=== PATIENT | female | born 1955 | race American Indian/Alaskan Native ===

== ENCOUNTER 2016-08-13 10:11 | Outpatient (CLI) | payer MEDICARE ==
--- NOTE | 2016-08-13 11:50 | Mammography Report ---
LEFT DIGITAL DIAGNOSTIC MAMMOGRAM : 08/13/16 10:11:00 CLINICAL: Recalled for calcifications. Status post left stereotactic biopsy for calcifications at [facility] in 2010. COMPARISON:07/28/16 screening in 07/05/15. FINDINGS: ML and CC magnification views demonstrate a biopsy clip and adjacent pleomorphic calcifications which have increased slightly in number compared to the 2016 exam. No associated mass or architectural distortion. No layering of calcifications. IMPRESSION: Increased number of probably benign calcifications. BI-RADS CATEGORY: 3 -- Probably Benign RECOMMENDATION: 6 month follow-up magnification views. We will also attempt to obtain comparison mammograms from [facility]. ACR BI-RADS MAMMOGRAPHIC CODES: 0 = Needs additional imaging evaluation; 1 = Negative; 2 = Benign; 3 = Probably benign; 4 = Suspicious; 5 = Malignant; 6 = Known biopsy-proven malignancy COMMENT: 1. Dense breast tissue, i.e., adenosis, fibrocystic changes, etc., may obscure an underlying neoplasm. 2. Approximately 10% of cancers are not detected with mammography. 3. A negative mammography report should not delay biopsy if a clinically suspicious mass is present. COMMENT: Patient follow-up letters are generated by our [employer] application.
== END 2016-08-13 10:12 | disposition home or self-care (01) ==
LOC: MAMMO 10:11
DX: R92.1 Mammographic calcification found on diagnostic imaging of breast (principal); R92.8 Other abnormal and inconclusive findings on diagnostic imaging of breast
CPT/HCPCS: G0206-LT

== ENCOUNTER 2017-10-01 11:22 | Emergency (ER) | payer MEDICARE ==
[2017-10-01 13:01] VITALS: BP 155/64
--- NOTE | 2017-10-01 13:39 | Emergency Department Report ---
Blank Doc - Documentation Documentation: Patient is a 62-year-old female with left tightness and Swelling will get Doppler ultrasound of lower leg and will give patient Tylenol and Motrin.
[2017-10-01 15:51] LABS: Hematocrit 39.8 % (30.3-42.9); Hemoglobin 12.5 gm/dl (10.1-14.3); Mean Corpuscular HGB Conc 31 % (30-34); Mean Corpuscular Hemoglobin 27 pg (28-32); Mean Corpuscular Volume 85 fl (79-97); Platelet Count 266 K/mm3 (140-440); Red Cell Distribution Width 16.5 % (13.2-15.2)
[2017-10-01 16:03] LABS: BUN/Creatinine Ratio 12; Blood Urea Nitrogen 11 mg/dL (7-17); Calcium 9.9 mg/dL (8.4-10.2); Hemolysis Index 8
--- NOTE | 2017-10-01 16:09 | Emergency Department Report ---
ED Lower Extremity HPI - General Chief Complaint: Extremity Problem,Nontraumatic Stated Complaint: LEFT LEG PAIN Time Seen by Provider: 10/01/17 14:01 Source: patient Mode of arrival: Ambulatory Limitations: No Limitations - History of Present Illness Initial Comments: This is a 62 y.o. A.A. female that presents with left lower leg swelling and calf pain. Patient was sent to ER directly from Flora Hansen with [facility], podiatry office today. They wanted to r/o DVT. Patient reports pain to LLE for 2 weeks with swelling. She thought it was associated with diabetes. History of DM2, HTN, & HLD. Patient is managed by Dr. Jennifer Warren at [facility] for chronic conditions. Denies sharp pain, redness, numbness, tingling, deformity, or recent injury. MD Complaint: leg injury -: week(s) (2) Injury: Leg: Left (swelling and pain) Type of Injury: unknown Place: home Severity: moderate Severity scale (0 -10): 7 Improves With: immobilization Worsens With: weight bearing, movement Associated Symptoms: swelling, able to partially bear weight, ambulatory. denies: snap/pop sensation, numbness, tingling, unable to bear weight Treatments Prior to Arrival: NSAIDS - Related Data Previous Rx's Medication Instructions Recorded Last Taken Type Ibuprofen 800 mg PO Q6H PRN #20 tablet 10/01/17 Unknown Rx Sulfamethoxazole/Trimethoprim 1 each PO BID 10 Days #20 tablet 10/01/17 Unknown Rx [Bactrim DS TAB] Allergies Allergy/AdvReac Type Severity Reaction Status Date / Time clonidine Allergy FLOATING Unverified 08/13/16 10:15 latex AdvReac Swelling Unverified 05/16/13 10:56 lisinopril AdvReac Unknown Unverified 05/16/13 10:56 ED Review of Systems ROS: Stated complaint: LEFT LEG PAIN Other details as noted in HPI Constitutional: denies: chills, fever Respiratory: denies: cough, shortness of breath, wheezing Cardiovascular: denies: chest pain, palpitations Gastrointestinal: denies: abdominal pain, nausea, vomiting, diarrhea, constipation Musculoskeletal: arthralgia (LLE pain). denies: back pain Skin: denies: rash, lesions, pruritus Neurological: abnormal gait. denies: headache, weakness, numbness, paresthesias Psychiatric: denies: anxiety, depression ED Past Medical Hx - Past Medical History Previous Medical History?: Yes Hx Hypertension: Yes Hx CVA: Yes (2010) Hx Diabetes: Yes - Surgical History Past Surgical History?: No - Social History Smoking Status: Never Smoker Substance Use Type: Alcohol - Medications Home Medications: Home Medications Medication Instructions Recorded Confirmed Last Taken Type Ibuprofen 800 mg PO Q6H PRN #20 tablet 10/01/17 Unknown Rx Sulfamethoxazole/Trimethoprim 1 each PO BID 10 Days #20 tablet 10/01/17 Unknown Rx [Bactrim DS TAB] ED Physical Exam - General Limitations: No Limitations General appearance: alert, in no apparent distress - Respiratory Respiratory exam: Present: normal lung sounds bilaterally. Absent: respiratory distress, wheezes, rales, rhonchi, stridor, accessory muscle use - Cardiovascular Cardiovascular Exam: Present: regular rate, normal rhythm, normal heart sounds. Absent: systolic murmur, diastolic murmur, rubs, gallop - GI/Abdominal GI/Abdominal exam: Present: soft, normal bowel sounds. Absent: distended, tenderness, guarding, rebound, rigid, organomegaly, mass - Extremities Exam Extremities exam: Present: full ROM, normal capillary refill, pedal edema, calf tenderness (left) - Expanded Lower Extremity Exam Left Hip exam: Present: normal inspection, full ROM Upper Leg exam: Present: normal inspection, full ROM Knee exam: Present: normal inspection, full ROM Lower Leg exam: Present: swelling. Absent: abrasion, laceration, ecchymosis, deformity, crepidus, dislocation Ankle exam: Present: tenderness, swelling. Absent: abrasion, laceration, ecchymosis, deformity, crepidus, dislocation, erythema Foot/Toe exam: Present: full ROM, swelling. Absent: abrasion, laceration, ecchymosis, deformity, crepidus, dislocation, erythema, amputation, puncture wound, foreign body Neuro vascular tendon exam: Present: no vascular compromise Gait: Positive: observed and limited by pain - Neurological Exam Neurological exam: Present: alert, oriented X3, normal gait - Psychiatric Psychiatric exam: Present: normal affect, normal mood - Skin Skin exam: Present: warm, dry, intact, normal color. Absent: rash ED Course Vital Signs 10/01/17 12:57 Temperature 97.7 F Pulse Rate 63 Respiratory 16 Rate Blood Pressure 155/64 O2 Sat by Pulse 97 Oximetry ED Lower Extremity MDM - Lab Data Result diagrams: 10/01/17 15:35 10/01/17 15:35 - Radiology Data Radiology results: report reviewed Doppler left: NO EVIDENCE OF DVT/SVT NOTED IN VESSELS/SEGMENTS EXAMINED - Medical Decision Making 62 y.o. female that presents with LLE pain for 2 weeks. She was sent here directly from podiatry appointment today to r/o DVT. Denies sharp pain, redness , numbness, tingling, deformity, or recent injury. Patient examined by me and in no acute distress. Vitals stable. Obtained BMP, CBC, d-dimer, BNP, and doppler of left LLE. Doppler no signs of DVT/SVT. Start ibuprofen for pain, compression stocking, f/u with vascular. Discharged home stable. Critical care attestation.: If time is entered above; I have spent that time in minutes in the direct care of this critically ill patient, excluding procedure time. ED Disposition Clinical Impression: Peripheral edema Cellulitis Qualifiers: Site of cellulitis: extremity Site of cellulitis of extremity: lower extremity Laterality: left Qualified Code(s): L03.116 - Cellulitis of left lower limb Disposition: - TO HOME OR SELFCARE Is pt being admited?: No Does the pt Need Aspirin: No Condition: Stable Instructions: Cellulitis (ED) Additional Instructions: Take antibiotics as prescribed for the full course. Avoid over use of left leg and prop leg up on pillows while sitting to decrease swelling along with wearing compression hose. Follow up with Vascular Surgeon in 24-48 hours. Return to ER if red, swollen, foul discharge, or fever. Prescriptions: Ibuprofen 800 mg PO Q6H PRN #20 tablet PRN Reason: Pain Sulfamethoxazole/Trimethoprim [Bactrim DS TAB] 1 each PO BID 10 Days #20 tablet Referrals: NADINE LYN MD [Referring] - 3-5 Days ANA WALKER DO [Staff Physician] - 3-5 Days Time of Disposition: 16:49 Print Language: ITALIAN
== END 2017-10-01 17:58 | disposition home or self-care (01) ==
LOC: ED 11:22
DX: L03.116 Cellulitis of left lower limb (principal); R60.9 Edema, unspecified; I10 Essential (primary) hypertension; E11.9 Type 2 diabetes mellitus without complications
CPT/HCPCS: 36415; 80048; 83880; 85027; 85379

== ENCOUNTER 2019-01-19 12:30 | Outpatient (CLI) | payer MEDICARE ==
[2019-01-19 13:21] LABS: Bilirubin,Urine NEG (Negative); Blood,Urine NEG (Negative); Color,Urine Yellow (Yellow); Protein,Urine <15 mg/dL mg/dL (Negative); Urobilinogen,Urine < 2.0 mg/dL (<2.0)
[2019-01-19 13:39] LABS: Alanine Aminotransferase 16 units/L (7-56); Albumin 4.1 g/dL (3.9-5); BUN/Creatinine Ratio 13; Blood Urea Nitrogen 14 mg/dL (7-17); Calcium 9.6 mg/dL (8.4-10.2); Hemolysis Index 2
[2019-01-19 13:41] LABS: Creatinine,Urine 104.1 mg/dL (0.1-20.0); Microalbumin/Creatinine Ratio 14.4 ug/mg; Protein/Creatinine Ratio,Urine 0.14
--- NOTE | 2019-01-19 15:28 | Ultrasound Report ---
ULTRASOUND RENAL INDICATION: N18.2 CHRONIC KIDNEY DISEASE, STAGE II (MILD). COMPARISON: No relevant prior imaging study available. FINDINGS: RIGHT KIDNEY: Size: 9 cm. Echogenicity: Normal. Cortical thickness: Normal. Stones: None. Hydronephrosis: None. Cyst or mass: None. LEFT KIDNEY: Size: 12.3 cm. Echogenicity: Normal. Cortical thickness: Normal. Stones: None. Hydronephrosis: None. Cyst or mass: None. Urinary Bladder: No significant abnormality. Free Fluid: None. Additional Findings: None. IMPRESSION 1. No acute sonographic abnormality of the kidneys. Signer Name: Sudhakar Siddiqui MD Signed: 01/19/2019 3:24 PM Workstation Name: [id number]
== END 2019-01-19 12:31 | disposition home or self-care (01) ==
LOC: US 12:30
PROVIDERS: ATTEND Internal Medicine Nephrology
DX: I12.9 Hypertensive chronic kidney disease with stage 1 through stage 4 chronic kidney disease, or unspecified chronic kidney disease (principal); N18.2 Chronic kidney disease, stage 2 (mild)
CPT/HCPCS: 36415; 76770; 80053; 81001; 82043; 82570; 83970; 84156

== ENCOUNTER 2019-08-01 10:08 | Outpatient (CLI) | payer MEDICARE ==
[2019-08-01 10:46] LABS: Bilirubin,Urine NEG (Negative); Blood,Urine NEG (Negative); Color,Urine Yellow (Yellow); Protein,Urine <15 mg/dL mg/dL (Negative); Urobilinogen,Urine < 2.0 mg/dL (<2.0)
[2019-08-01 10:50] LABS: BUN/Creatinine Ratio 13; Blood Urea Nitrogen 13 mg/dL (7-17); Calcium 9.4 mg/dL (8.4-10.2); Hemolysis Index 1
[2019-08-01 14:17] LABS: Creatinine,Urine 58.4 mg/dL (0.1-20.0); Microalbumin/Creatinine Ratio 20.5 ug/mg
== END 2019-08-01 10:09 | disposition home or self-care (01) ==
LOC: LAB 10:08
PROVIDERS: ATTEND Internal Medicine Nephrology
DX: N18.2 Chronic kidney disease, stage 2 (mild) (principal)
CPT/HCPCS: 36415; 80048; 81001; 82043; 83970

== ENCOUNTER 2020-04-02 13:30 | Outpatient (CLI) | payer MEDICARE ==
--- NOTE | 2020-04-02 14:43 | XRay Report ---
LEFT FOREARM 2 VIEWS INDICATION: SOFT TISSUE DISORDER UNSPECIFIED. COMPARISON: None. IMPRESSION: There is a large soft tissue mass in the medial soft tissues near the elbow measuring up to 9 x 5 x 5 cm. No internal calcifications, fluid component or gas is appreciated on x-ray. The cindy ny structures and joint spaces are unremarkable. If further evaluation is needed, MRI with contrast s hould provide the most information. Signer Name: Erik Maurer Jr, MD Signed: 04/02/2020 2:38 PM Workstation Name: [id number]
== END 2020-04-02 13:31 | disposition home or self-care (01) ==
LOC: XRAY 13:30
PROVIDERS: ATTEND Surgery
DX: M79.9 Soft tissue disorder, unspecified (principal)

== ENCOUNTER 2020-04-04 09:34 | Outpatient (CLI) | payer MEDICARE ==
--- NOTE | 2020-04-04 12:11 | Magnetic Resonance Report ---
MRI LEFT ELBOW WITHOUT CONTRAST INDICATION / CLINICAL INFORMATION: Soft tissue mass for one year. TECHNIQUE: Multiplanar, multisequence MR images were obtained. No contrast used. COMPARISON: Radiograph dated 04/02/2020. FINDINGS: There is a large, lobulated soft tissue mass within the superficial soft tissues of the anterolateral elbow, measuring approximately 6.3 x 7.2 x 10.3 cm in AP, transverse, and craniocaudal dimensions. T here are heterogeneous signal characteristics, but predominantly demonstrating low T1 and high T2 sig nal. There are multiple septations. This lesion produces mass effect on the elbow musculature without evidence of seth invasion. Multiple tiny vessels are seen along the periphery of the lesion. 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 The ulnar collateral ligament, radial collateral ligament, and lateral ulnar collateral lig ament are intact. The common flexor and extensor tendons are intact without significant abnormality. IMPRESSION: 1. 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 Biopsy is recommended for further evaluation. 2. 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 Report dictated by: Tano Marquis MD Report dictated on: 04/04/2020 10:59 AM I have reviewed the images, agree with this report, and edited this report as needed. Signer Name: Lawson Marquis MD FACR Signed: 04/04/2020 12:07 PM Workstation Name: [id number]
== END 2020-04-04 09:35 | disposition home or self-care (01) ==
LOC: MRI 09:34
PROVIDERS: ATTEND Surgery
DX: M19.022 Primary osteoarthritis, left elbow (principal); M17.32 Unilateral post-traumatic osteoarthritis, left knee; M79.9 Soft tissue disorder, unspecified